=== PATIENT | male | born 1955 | race Two or more races ===

== ENCOUNTER 2023-01-20 21:38 | Inpatient (IN) | payer MEDICARE, OTHER ==
[~2023-01-20] VITALS: Ht 165.1 cm; Wt 85.9 kg
--- NOTE | 2023-01-20 22:30 | NUR ---
LAILA DUVAL FOR HEADACHE AND DIZZINESS SINCE AM. PATIENT IS [place] SPEAKING. ABLE TO MAKE NEEDS KNOWN. PLACED COMFORTABLY IN BED. VITALS CHECKED.
--- NOTE | 2023-01-20 22:50 | NUR ---
PT RETURNED TO ER BED [address]
[2023-01-20] MEDS ORDERED: IV NS 0.9% 500 ML BAG IV ONE (23:00)
[2023-01-20] MEDS ORDERED: MECLIZINE HCL 12.5 MG TABLET PO ONE (23:00)
[2023-01-20] MEDS ORDERED: ONDANSETRON HCL/PF 4 MG/2 ML VIAL IVP ONE (23:00)
[2023-01-20] MEDS ORDERED: CEFTRIAXONE 1GM BAG (ER ONLY) 1 GM/50 ML PIGGYBACK IV ONE (23:30)
[2023-01-20] MEDS ORDERED: AZITHROMYCIN 500 MG in IV D5W 250 ML IV ONE (23:30)
--- NOTE | 2023-01-20 23:30 | NUR ---
IV PAPI G20 ON LEFT FA. BLOOD DRAWN AND SENT TO LAB
[2023-01-20] MEDS ORDERED: CEFTRIAXONE 1GM BAG (ER ONLY) 50 ML IV ONE (23:38)
[2023-01-20] MEDS ORDERED: AZITHROMYCIN 500 MG VIAL ONE (23:38)
[2023-01-20] MEDS ORDERED: ONDANSETRON HCL/PF 4 MG/2 ML VIAL ONE (23:39)
[2023-01-20] MEDS ORDERED: MECLIZINE HCL 25 MG TABLET ONE (23:39)
[2023-01-20 23:45] LABS: BASOPHILS % (AUTO) 0.2 % (0.0-2.0); EOSINOPHILS % (AUTO) 6.1 % (0.0-6.0); HEMATOCRIT 45 % (39-51); HEMOGLOBIN 14.9 g/dL (13.5-17.5); LYMPHOCYTES # (AUTO) 2.9 K/uL (0.8-4.8); LYMPHOCYTES % (AUTO) 40.1 % (20.0-44.0); MEAN CORPUSCULAR HGB CONC 33 g/dl (31.0-36.0); MEAN CORPUSCULAR VOLUME 94 fL (80-96); MONOCYTES # (AUTO) 0.6 K/uL (0.1-1.30); MONOCYTES % (AUTO) 7.7 % (2.0-12.0); NEUTROPHILS # (AUTO) 3.3 K/uL (1.8-8.9); NEUTROPHILS % (AUTO) 45.9 % (43.0-81.0); PLATELET COUNT (AUTO) 207 K/uL (150-450); RED BLOOD CELL COUNT(AUTO) 4.79 MIL/uL (4.5-6.0); WHITE BLOOD COUNT (AUTO) 7.2 K/uL (4.3-11.0)
[2023-01-20 23:53] LABS: BILIRUBIN,URINE NEGATIVE (NEGATIVE); COLOR,URINE YELLOW (YELLOW); LEUKOCYTE ESTERASE ,URINE NEGATIVE (NEGATIVE); NITRITE, URINE NEGATIVE (NEGATIVE); PROTEIN,URINE NEGATIVE (NEGATIVE); UGLUCOSE 2+ mg/dL (NEGATIVE); UROBILINOGEN,URINE 0.2 EU/dL (0.2)
[2023-01-20 23:59] LABS: CALCIUM, SERUM 9.2 mg/dL (8.5-10.1); CARBON DIOXIDE 27 mmol/L (21-32); CHLORIDE 102 mmol/L (98-107); CREATININE 1.1 mg/dL (0.6-1.3); GLUCOSE 125 mg/dL (74-106); POTASSIUM 3.7 mmol/L (3.5-5.1); SODIUM SERUM 136 mmol/L (136-145); UREA NITROGEN, BLOOD 18 mg/dL (7-18)
[2023-01-20 23:59] LABS: BACTERIA,URINE Rare /HPF (None Seen); RBC,URINE 0-2 /HPF (0-2); SQUAMOUS EPITHELIAL CELL,UR Many /HPF (None Seen); WBC,URINE 0-2 /HPF (0-3)
[2023-01-21 00:06] LABS: ALANINE AMINOTRANSFERASE 30 U/L (12-78); ALBUMIN 3.7 g/dL (3.4-5.0); ALKALINE PHOSPHATASE 114 U/L (46-116); ASPARTATE AMINOTRANSFERASE 41 U/L (15-37); BILIRUBIN,DIRECT 0.1 mg/dL (0.0-0.2); BILIRUBIN,TOTAL 0.3 mg/dL (0.2-1.0); TOTAL PROTEIN, SERUM 7.3 g/dL (6.4-8.2)
--- NOTE | 2023-01-21 00:44 | NUR ---
DR. INIGUEZ DO ON PHONE CALL WITH DR. DOSS
[2023-01-21] MEDS ORDERED: hydrALAZINE HCL IV 20 MG VIAL IV PRN (01:00)
[2023-01-21] MEDS ORDERED: MORPHINE SULFATE INJ 2 MG/ML DISP.SYRIN IV PRN (01:00)
[2023-01-21] MEDS ORDERED: ACETAMINOPHEN 325 MG TABLET PO PRN (01:00)
[2023-01-21] MEDS ORDERED: ONDANSETRON HCL/PF 4 MG/2 ML VIAL IVP PRN (01:00)
[2023-01-21] MEDS ORDERED: DEXTROSE 50%-WATER 50 ML DISP.SYRIN IV PRN (01:00)
[2023-01-21] MEDS ORDERED: ALBUTEROL FS 2.5 MG/0.5 ML VIAL.NEB NEB PRN (01:00)
--- NOTE | 2023-01-21 01:56 | NUR ---
REPORT GIVEN TO ARCHIE ROE
[2023-01-21] MEDS ORDERED: CEFEPIME 2 GM in IV D5W 100 ML IV ONE (02:00)
--- NOTE | 2023-01-21 02:40 | NUR ---
PT TRANSFERRED TO 310-1 VIA ACLS PROTOCOL. VSS. ALL BELONGINGS WITH PT.
--- NOTE | 2023-01-21 02:40 | NUR ---
HUMAN RELATIONS MANAGERHIM CODER NOTE RECEIVED PATIENT AWAKE FROM ER VIA GURNEY AT 0240 .PATIENT IS A/O TIMES 2. ABLE TO MAKE NEEDS KNOWN. WITH SOME CONFUSION. ALL NEEDS ATTENDED. ON TELE MONITOR READING SR 75. NO PAIN NOTED. NO SOB NOTED. NO DISTRESS NOTED. BREATHING EVEN AND UNLABORED. NO SOB NOTED. OVERALL SKIN CHECKED. OVERALL SKIN INTACT. ALL THE BELONGINGS ACCOUNTED AND SIGNED FOR. ALL THE INFORMATION OBTAINED FROM PATIENT WITH THE TRANSLATION OF CONTENT MANAGER. CONTENT MANAGER EDUCATED THE PATIENT FOR CALL LIGHT USAGE. ALL THE SAFETY MEASURES IN PLACE. BED LOCKED IN THE LOWEST POSITION. CALL LIGHT AND TABLE IN EASY REACH. SIDE RAILS UP TIMES 2. WILL CONTINUE TO MONITOR CLOSELY.
--- NOTE | 2023-01-21 03:54 | NUR ---
RN NOTES DID NOT ADMINISTEREDF CEFIPIME FOR 0200 AM SINCE THERE WAS A PHARMACY NOTE STATING DO NOT ADMINISTER CEFIPIME . THE PHARMACY NEEDS TO DOSE THE MEDICATION.
[2023-01-21 05:00] VITALS: BP 162/82
[2023-01-21] MEDS: BLOOD SUGAR DIAGNOSTIC 1 EACH STRIP IN SCH ×4 (05:52→22:17)
[2023-01-21] MEDS: INSULIN REGULAR, HUMAN 100 UNIT/ML 3 ML VIAL SQ PRN ×4 (05:53→22:16)
[2023-01-21 06:00] VITALS: BP 135/72
--- NOTE | 2023-01-21 06:53 | NUR ---
BASE ENGINEER CLOSING NOTE PATIENT IS A/O TIMES 2. ABLE TO MAKE NEEDS KNOWN. WITH SOME CONFUSION. ALL NEEDS ATTENDED. ON TELE MONITOR READING SR 72. NO PAIN NOTED. NO SOB NOTED. NO DISTRESS NOTED. BREATHING EVEN AND UNLABORED. NO SOB NOTED. OVERALL SKIN CHECKED. OVERALL SKIN INTACT. ALL THE SAFETY MEASURES IN PLACE. BED LOCKED IN THE LOWEST POSITION. CALL LIGHT AND TABLE IN EASY REACH. SIDE RAILS UP TIMES 2. WILL ENDORSE FOR KATIE.
[2023-01-21 07:00] VITALS: BP 138/65
--- NOTE | 2023-01-21 07:48 | NUR ---
PROPERTY DISPOSAL MANAGER OPENING NOTE: PATIENT IS A/O TIMES 2. ABLE TO MAKE NEEDS KNOWN. WITH SOME CONFUSION. ON TELE MONITOR READING SR 92. NO PAIN NOTED. NO SOB NOTED. NO DISTRESS NOTED. BREATHING EVEN AND UNLABORED. NO SOB NOTED. SKIN INTACT IS INTACT. ALL THE SAFETY MEASURES IN PLACE. BED LOCKED IN THE LOWEST POSITION. CALL LIGHT AND TABLE IN EASY REACH. SIDE RAILS UP TIMES 2. WILL CONTINUE TO CARE FOR AND MONITOR PATIENT PER HOSPITALIST'S POC.
[2023-01-21] MEDS ORDERED: FENO54TA PO (07:52)
[2023-01-21] MEDS ORDERED: ASPI-1169 PO (07:52)
[2023-01-21] MEDS ORDERED: BISA10SU11 RC (07:52)
[2023-01-21] MEDS ORDERED: ACET325T53 PO (07:52)
[2023-01-21] MEDS ORDERED: METF-440 PO (07:52)
[2023-01-21] MEDS ORDERED: GLIP5TAB13 PO (07:52)
[2023-01-21] MEDS ORDERED: GLUC1KIT IJ (07:52)
[2023-01-21] MEDS ORDERED: RISP2TAB85 PO (07:52)
[2023-01-21] MEDS ORDERED: LOSA25TA27 PO (07:52)
[2023-01-21] MEDS ORDERED: DOCU-141 PO (07:52)
[2023-01-21] MEDS ORDERED: MAGN400O6 PO (07:52)
[2023-01-21] MEDS ORDERED: FENO48TA PO (07:52)
[2023-01-21] MEDS ORDERED: BISACODYL SUPP (10 MG) 10 MG/SUPP.RECT SUPP.RECT RC PRN (09:00)
[2023-01-21] MEDS ORDERED: MAGNESIUM HYDROXIDE 30 ML UDC PO PRN (09:00)
[2023-01-21] MEDS: ASPIRIN 81 MG TAB.CHEW PO SCH (09:38)
[2023-01-21] MEDS: DOCUSATE SODIUM 100 MG CAPSULE PO SCH (09:38)
[2023-01-21] MEDS: risperiDONE 1 MG TABLET PO SCH ×2 (09:39→17:47)
[2023-01-21] MEDS: LOSARTAN POTASSIUM 25 MG TABLET PO SCH (09:39)
[2023-01-21] MEDS: METFORMIN 500 MG TABLET PO SCH ×2 (09:39→17:47)
[2023-01-21] MEDS: Fenofibrate 48 MG TABLET PO SCH (09:39)
[2023-01-21] MEDS: HEPARIN SODIUM, PORCINE 5000 UNITS/1 ML VIAL SQ SCH ×2 (09:44→21:24)
[2023-01-21 12:00] VITALS: BP 148/68
[2023-01-21] MEDS: CEFEPIME 2 GM in IV D5W 100 ML IV SCH ×2 (12:23→21:24)
[2023-01-21 16:00] VITALS: BP 143/70
--- NOTE | 2023-01-21 18:29 | NUR ---
JITNEY DRIVER CLOSING NOTE PATIENT IS A/O TIMES 2. ABLE TO MAKE NEEDS KNOWN. WITH SOME CONFUSION. ALL NEEDS ATTENDED. ON TELE MONITOR READING SR, 98 BPM . NO PAIN NOTED. NO SOB NOTED. NO DISTRESS NOTED. BREATHING EVEN AND UNLABORED. SKIN REMAINS INTACT. ALL THE SAFETY MEASURES IN PLACE. BED LOCKED IN THE LOWEST POSITION. CALL LIGHT AND TABLE IN EASY REACH. SIDE RAILS UP TIMES 2. WILL ENDORSE TO FLOOR POLISHER RNTOYA, FOR KATIE.
[2023-01-21 20:00] VITALS: BP 155/74
--- NOTE | 2023-01-21 20:27 | NUR ---
CURTAIN INSPECTOR OPENING NOTES: RECEIVED PATIENT SLEEP IN BED COMFORTABLY, AROUSABLE TO VERBAL STIMULI, BED IN LOW POSITION, CALL LIGHTS WITHIN REACH, NO COMPLAIN OF PAIN AND DISCOMFORT AT THIS TIME, ON ROOM AIR SATURATING WELL, ON TELE MONITOR-SR75 NO SYMPTOMS WAS OBSERVED, IV LINE AT LFA#20 SL, PATIENT KEPT CLEAN AND DRY ALL NEEDS MET, WILL CONTINUE TO MONITOR.
[2023-01-22] VITALS: BP 152/73
[2023-01-22 04:00] VITALS: BP 137/75
--- NOTE | 2023-01-22 06:21 | NUR ---
GLOBAL PRESIDENT CLOSING NOTES: PATIENT SLEEP IN BED COMFORTABLY, AROUSABLE TO VERBAL STIMULI, BED IN LOW POSITION CALL LIGHTS WITHIN REACH, ON ROOM AIR SATURATING WELL, NO SOB WAS OBSERVED, ON TELE MONITOR- SR-62, , PATIENT IS A/OX2-3 ABLE TO MAKE NEEDS KNOWN, KEPT CLEAN AND DRY ALL NEEDS MET ENDORSE TO INCOMING SHIFT.
[2023-01-22 06:31] LABS: BASOPHILS % (AUTO) 0.4 % (0.0-2.0); EOSINOPHILS % (AUTO) 6.3 % (0.0-6.0); HEMATOCRIT 48 % (39-51); HEMOGLOBIN 15.6 g/dL (13.5-17.5); LYMPHOCYTES # (AUTO) 1.7 K/uL (0.8-4.8); LYMPHOCYTES % (AUTO) 26.1 % (20.0-44.0); MEAN CORPUSCULAR HGB CONC 33 g/dl (31.0-36.0); MEAN CORPUSCULAR VOLUME 94 fL (80-96); MONOCYTES # (AUTO) 0.4 K/uL (0.1-1.30); MONOCYTES % (AUTO) 6.7 % (2.0-12.0); NEUTROPHILS % (AUTO) 60.5 % (43.0-81.0); PLATELET COUNT (AUTO) 173 K/uL (150-450); RED BLOOD CELL COUNT(AUTO) 5.07 MIL/uL (4.5-6.0); WHITE BLOOD COUNT (AUTO) 6.6 K/uL (4.3-11.0)
[2023-01-22] MEDS: INSULIN REGULAR, HUMAN 100 UNIT/ML 3 ML VIAL SQ PRN ×2 (06:49→13:01)
[2023-01-22] MEDS: BLOOD SUGAR DIAGNOSTIC 1 EACH STRIP IN SCH ×2 (06:51→12:56)
[2023-01-22 07:00] VITALS: BP 144/68
[2023-01-22 07:08] LABS: ALBUMIN 3.6 g/dL (3.4-5.0); BILIRUBIN,TOTAL 0.6 mg/dL (0.2-1.0); CALCIUM, SERUM 9.3 mg/dL (8.5-10.1); CREATININE 1.3 mg/dL (0.6-1.3); MAGNESIUM 2.1 mg/dL (1.8-2.4); PHOSPHORUS 3.8 mg/dL (2.5-4.9); POTASSIUM 4.3 mmol/L (3.5-5.1); TOTAL PROTEIN, SERUM 7.3 g/dL (6.4-8.2)
--- NOTE | 2023-01-22 07:40 | NUR ---
GAME PRESERVE MANAGER OPENING NOTE: PATIENT IS SLEEPING, EASILY AROUSABLE. A/O TIMES 2. ABLE TO MAKE HIS NEEDS KNOWN, WITH SOME CONFUSION. ON TELE MONITOR READING SR 62 BPM. NO PAIN NOTED. NO SOB NOTED. NO DISTRESS NOTED. BREATHING EVEN AND UNLABORED. SKIN IS INTACT. ALL SAFETY MEASURES IN PLACE: BED LOCKED IN THE LOWEST POSITION; CALL LIGHT AND TABLE IN EASY REACH; SIDE RAILS UP TIMES 3; BED ALARM ON; AND BED BRAKES LOCKED ON. WILL CONTINUE TO CARE FOR AND MONITOR PATIENT PER HOSPITALIST'S POC.
[2023-01-22] MEDS: ASPIRIN 81 MG TAB.CHEW PO SCH (09:17)
[2023-01-22] MEDS: DOCUSATE SODIUM 100 MG CAPSULE PO SCH (09:17)
[2023-01-22] MEDS: CEFEPIME 2 GM in IV D5W 100 ML IV SCH (09:17)
[2023-01-22 09:18] VITALS: BP 144/68
[2023-01-22] MEDS: METFORMIN 500 MG TABLET PO SCH (09:18)
[2023-01-22] MEDS: LOSARTAN POTASSIUM 25 MG TABLET PO SCH (09:18)
[2023-01-22] MEDS: Fenofibrate 48 MG TABLET PO SCH (09:19)
[2023-01-22] MEDS: risperiDONE 1 MG TABLET PO SCH (09:19)
[2023-01-22] MEDS: HEPARIN SODIUM, PORCINE 5000 UNITS/1 ML VIAL SQ SCH (09:20)
[2023-01-22] MEDS ORDERED: AZIT1PAC9 PO (10:59)
--- NOTE | 2023-01-22 16:49 | NUR ---
RUBBER MOLDERDIGITAL DATA ANALYST TRANSFER PATIENT TO [facility] NOTE Patient tolerated well the removal of PIV catheter fully intact from right wrist without any complications. Telemetry discontinued. Phone report given to receiving nurse, Nova, at the [facility] assisted living facility. Yovani departed the [facility] with all his listed belongings/valuables, via ambulance gurney, accompanied by ambulance doughnut dough mixer, to ambulance bound for the [facility] at 16:45 hours.
== END 2023-01-22 16:50 | DRG 102 ==
LOC: ER 21:59 → TELE 01-21 01:23 → MED 01-22 10:20
PROVIDERS: ADMIT Internal Medicine; ATTEND Internal Medicine
DX: G43.909 Migraine, unspecified, not intractable, without status migrainosus (principal); J15.9 Unspecified bacterial pneumonia; J98.11 Atelectasis; R42 Dizziness and giddiness; E11.9 Type 2 diabetes mellitus without complications; E78.5 Hyperlipidemia, unspecified; I10 Essential (primary) hypertension; Z59.00 Homelessness unspecified; Z20.822 Contact with and (suspected) exposure to COVID-19; Z79.84 Long term (current) use of oral hypoglycemic drugs
CPT/HCPCS: 36415; 70450-TC; 71045-TC; 80048-TC; 80053-TC; 80076-TC; 81001; 82962-TC; 83605-TC; 83735-TC; 84100-TC; 84484-TC; 85025-TC; 85730-TC; 87040-TC; 87081-TC; 97112-TC; 97116-TC; 97530-TC; A4223; C9803; G0378; J0360; J0456; J0692; J0696; J1644; J1815; J2405; J7040; J7050; J7060; J8597